=== PATIENT | female | born 1985 | race Caucasian/White ===

== ENCOUNTER 2018-02-04 11:37 | Emergency (ER) | payer BC ==
[2018-02-04 12:05] VITALS: BP 119/97
--- NOTE | 2018-02-04 12:15 | UC ---
Ear Complaint HPI - HPI Summary HPI Summary: 32 yo female presents with right ear pain for the last 2 days. She tells me that she has been doing a lot of swimming recently and thinks her ear is infected. Has noticed some mild drainage from the ear and some decreased hearing. Denies fever or chills - History of Current Complaint Chief Complaint: UCEar Stated Complaint: EAR PAIN Time Seen by Provider: 02/04/18 12:08 Hx Obtained From: Patient Hx Last Menstrual Period: 01/17/18 Onset/Duration: Gradual Onset Severity Initially: Moderate Severity Currently: Severe Pain Intensity: 8 Pain Scale Used: 0-10 Numeric - Allergies/Home Medications Allergies/Adverse Reactions: Allergies Allergy/AdvReac Type Severity Reaction Status Date / Time No Known Allergies Allergy Verified 07/08/13 18:01 Home Medications: Home Medications Ibuprofen TAB* [Motrin TAB* 400 MG] 02/04/18 [History] PMH/Surg Hx/FS Hx/Imm Hx Psychological History: Anxiety - Surgical History Surgical History: None - Family History Known Family History: Positive: None - Social History Occupation: Employed Full-time Lives: With Family Alcohol Use: Occasionally Substance Use Type: None Smoking Status (MU): Never Smoked Tobacco Review of Systems Constitutional: Negative Skin: Negative Eyes: Negative ENT: Ear Ache Respiratory: Negative Cardiovascular: Negative Gastrointestinal: Negative Neurological: Negative Psychological: Negative All Other Systems Reviewed And Are Negative: Yes Physical Exam - Summary Physical Exam Summary: GENERAL: NAD. WDWN. No pain distress. SKIN: No rashes, sores, lesions, or open wounds. HEENT: Head: AT/NC Eyes: EOM intact. Conjunctiva clear without inflammation or discharge. Ears: Hearing grossly normal. Right ear: Moderate canal edema with moderate white purulent discharge. TM intact. Tragus and auricle TTP with movement. Left ear: TM intact. Ear canal WNL. Nose: Nasal mucosa pink and moist. NTTP maxillary and frontal sinus. Throat: Posterior oropharynx without exudates, erythema, or tonsillar enlargement. Uvula midline. NECK: Supple. Nontender. No lymphadenopathy. CHEST: CTAB. No r/r/w. No accessory muscle use. Breathing comfortably and in no distress. CV: RRR. Without m/r/g. Pulses intact. Brisk cap refill. NEURO: Alert. CN II-XII grossly intact. PSYCH: Age appropriate behavior. Triage Information Reviewed: Yes Vital Signs: Initial Vital Signs Temp 97.6 F 02/04/18 11:58 Pulse 82 02/04/18 11:58 Resp 16 02/04/18 11:58 BP 119/97 02/04/18 11:58 Pulse Ox 100 02/04/18 11:58 Vital Signs Reviewed: Yes Ear Complaint Course/Dx - Course Course Of Treatment: Right otitis externa - Differential Dx/Diagnosis Provider Diagnoses: Right otitis externa Discharge - Sign-Out/Discharge Documenting (check all that apply): Patient Departure - Discharge Plan Condition: Stable Disposition: HOME Prescriptions: Ciproflox/Dexameth OTIC.SUSP* [Ciprodex Otic*] 4 drop RIGHT EAR BID #1 bottle Patient Education Materials: Otitis Externa (ED) Referrals: Non Staff,Doctor [Primary Care Provider] - Additional Instructions: If you develop a fever, shortness of breath, chest pain, new or worsening symptoms - please call your PCP or go to the ED. - Billing Disposition and Condition Condition: STABLE Disposition: Home
== END 2018-02-04 12:22 | disposition home or self-care (01) ==
LOC: UCEAST 11:37
DX: H60.91 Unspecified otitis externa, right ear (principal)
CPT/HCPCS: 99202; G0463

== ENCOUNTER 2019-08-03 11:50 | Emergency (ER) | payer BC, OTHER ==
[2019-08-03 13:14] VITALS: BP 123/78
--- NOTE | 2019-08-03 13:34 | UC ---
Laceration HPI - HPI Summary HPI Summary: HPI: BUTTOCKS LACERATION 16 HOURS AGO. Fell against the metal handle of a drawer. No other injury. - History Of Current Complaint Chief Complaint: UCLaceration Stated Complaint: LACERATION Time Seen by Provider: 08/03/19 13:16 Hx Last Menstrual Period: 4 weeks ago Pain Intensity: 3 - Allergies/Home Medications Allergies/Adverse Reactions: Allergies Allergy/AdvReac Type Severity Reaction Status Date / Time No Known Allergies Allergy Verified 08/03/19 13:14 PMH/Surg Hx/FS Hx/Imm Hx Previously Healthy: Yes Psychological History: Anxiety - Surgical History Surgical History: None - Family History Known Family History: Positive: None - Social History Occupation: Employed Full-time - library at [employer] Alcohol Use: Occasionally Substance Use Type: None Smoking Status (MU): Never Smoked Tobacco - Immunization History Most Recent Tetanus Shot: September 2018 Review of Systems All Other Systems Reviewed And Are Negative: Yes Skin: Positive: Other - laceration right buttocks Respiratory: Positive: Negative Cardiovascular: Positive: Negative Gastrointestinal: Positive: Negative Genitourinary: Positive: Negative Is Patient Immunocompromised?: No Physical Exam Triage Information Reviewed: Yes Vital Signs: Initial Vital Signs Temp 97.9 F 08/03/19 13:10 Pulse 80 08/03/19 13:10 Resp 16 08/03/19 13:10 BP 123/78 08/03/19 13:10 Pulse Ox 98 08/03/19 13:10 Vital Signs Reviewed: Yes ENT Exam: Normal ENT: Positive: Normal ENT inspection Respiratory: Positive: Chest non-tender, Lungs clear, Normal breath sounds Cardiovascular: Positive: RRR, No Murmur Abdomen Description: Positive: Nontender, No Organomegaly Skin: Positive: Other - 8.5 cm laceration, right buttocks with surrounding ecchymosis and localized reactive erythema no other injury; no sign of infection Laceration Repair - Laceration Repair 1 Description: Irregular - right buttocks; well approximated except for 2.0 cm superior aspect is by 1 cm Laceration Size After Repair: Length (cm) - 01/28 Modified For Repair: No Irrigation With Pressure Irrigation Device: Yes Closure Material: SteriStrips - after pressure irrigation, benzoin was placed around the wound edges and a number of 1/2 inch Steri-Strips approximate the gaping part of this irregular wound. This was approximately 2.0 cm in length. The remainder of the 8.5 cm wound is well approximated. The area was dressed with Tegaderm. Laceration Course/Dx - Course/Dx Course Of Treatment: healthy 34-year-old with a 16 hour old laceration of the right buttocks. The wound is well approximated, except for superior 2.0 cm of the wound, which is gaping approximately 1 cm. The wound is not bleeding. There is surrounding ecchymosis and reactive erythema but no signs of infection. The area was copiously irrigated by the nurse and then I brought the wound edges together and Steri-Stripped the wound using benzoin as a adhesive. Tegaderm was then applied over the wound. I spoke to the patient and her about the need to be aware if there are any signs of infection. They voiced understanding and will follow-up as needed with the patient's physician. The patient is up-to- date on her tetanus. No antibiotic is required. - Differential Dx - Laceration/Wound Differental Diagnoses: Laceration, Puncture Wound - Diagnosis Provider Diagnosis: Laceration Discharge ED - Sign-Out/Discharge Documenting (check all that apply): Patient Departure All imaging exams completed and their final reports reviewed: No Studies - Discharge Plan Condition: Stable Disposition: HOME Patient Education Materials: Laceration (DC) Referrals: Dannielle Pace MD [Primary Care Provider] - Additional Instructions: WE DISCUSSED: the most important changed to watch for are any signs of infection. PLEASE SEEK CARE AT THE EMERGENCY DEPARTMENT IF SYMPTOMS WORSEN OR IF NEW SYMPTOMS DEVELOP. FOLLOW UP WITH YOUR PRIMARY CARE PHYSICIAN IF CONDITION CONTINUES BEYOND 3 DAYS WITHOUT IMPROVEMENT or if there is bleeding, or infection that is concerning. YOUR DIAGNOSIS IS: Right buttocks laceration YOUR PRESCRIPTION RECOMMENDATION IS:none OTHER INSTRUCTIONS: FOR PAIN AND/OR SLEEP: For pain: Ibuprofen (Motrin and other brand names) 400-600mg PLUS acetaminophen (Tylenol and other brand names) 500mg - 1000mg every 8 hours. - Billing Disposition and Condition Condition: STABLE Disposition: Home
[2019-08-03] MEDS ORDERED: Benzoin Compound STICK TOPICAL ONE (13:46)
== END 2019-08-03 14:24 | disposition home or self-care (01) ==
LOC: UCEAST 11:50
DX: S31.811A Laceration without foreign body of right buttock, initial encounter (principal); W18.09XA Striking against other object with subsequent fall, initial encounter; Y92.9 Unspecified place or not applicable; F41.9 Anxiety disorder, unspecified
CPT/HCPCS: 99212; G0463